=== PATIENT | male | born 1990 | race African-American/Black ===

== ENCOUNTER 2016-08-30 16:53 | Emergency (ER) | payer SELFPAY ==
[~2016-08-30] VITALS: Ht 170.2 cm; Wt 56.8 kg
[~2016-08-30 16:53] MED LIST: DIVALPROEX SOD500 MG PO; KEPPRA500 MG PO; TRAZODONE HCL50 MG PO; ZOFRAN4 MG PO
[2016-08-30 17:37] VITALS: BP 105/75
[2016-08-30] MEDS ORDERED: ZOFRAN4 MG PO (21:44)
== END 2016-08-30 17:39 | disposition left against medical advice (07) ==
LOC: EME 16:53
DX: S01.01XA Laceration without foreign body of scalp, initial encounter (principal); S80.211A Abrasion, right knee, initial encounter; S80.212A Abrasion, left knee, initial encounter; W19.XXXA Unspecified fall, initial encounter; Z59.0 Homelessness; J45.909 Unspecified asthma, uncomplicated; Z91.018 Allergy to other foods; F17.200 Nicotine dependence, unspecified, uncomplicated
CPT/HCPCS: 99281; 99284

== ENCOUNTER 2016-08-30 19:43 | Emergency (ER) | payer SELFPAY ==
[~2016-08-30] VITALS: Ht 170.2 cm; Wt 56.8 kg
[2016-08-30 20:33] LABS: HEMATOCRIT 39.9 % (38.0-50.0); MCH 28.2 PG (29.0-34.0); MCHC 32.8 G/DL (30.0-36.0); MCV 85.8 FL (86-99); MEAN PLAT.VOLUME 9.4 uM^3 (9.0-12.4); PLATELET COUNT 251 K/uL (156-360); RBC DIS.WIDTH-CV 14.1 % (11.8-14.6); RBC DIS.WIDTH-SD 43.5 % (39-53); RED BLOOD COUNT 4.65 M/uL (4.00-5.50); WHITE BLOOD COUNT 14.5 K/uL (4.1-10.2)
[2016-08-30 20:43] LABS: CHLORIDE 111 mEq/L (99-109); POTASSIUM 4.7 mEq/L (3.7-5.4); SODIUM 146 mEq/L (136-147)
[2016-08-30 20:44] LABS: GLUCOSE 75 mg/dL (70-99)
[2016-08-30 20:46] LABS: ANION GAP 9 MEQ/L (2-14)
[2016-08-30 20:47] LABS: SERUM ETHYL ALCOHOL 53 mg/dL
[2016-08-30 20:48] LABS: GFR ESTIMATE (CALCULATED) > 59 mL/min/
[2016-08-30 20:49] LABS: UREA NITROGEN (BUN) 8 mg/dL (9-23)
[2016-08-30 21:35] VITALS: BP 94/51
[2016-08-30] MEDS ORDERED: ZOFRAN4 MG PO (21:44)
[2016-08-30 22:01] LABS: BILIRUBIN NEGATIVE; BLOOD NEGATIVE; COLOR YELLOW ((YELLOW)); GLUCOSE (STRIP) NEGATIVE; KETONES 5; LEUKOCYTES NEGATIVE; NITRITE NEGATIVE; PROTEIN (STRIP) NEGATIVE; SPECIFIC GRAVITY 1.017 (1.000-1.030); UROBILINOGEN 0.2 MG/DL (0.2-1.0)
[2016-08-30 22:02] LABS: ADD MIUA? NO; UCUL ADDED? NO
[2016-08-30 22:12] LABS: AMPHETAMINE NEGATIVE (500 ng/mL); BARBITURATES NEGATIVE (200 ng/mL); BENZODIAZEPINES NEGATIVE (150 ng/mL); COCAINE NEGATIVE (150 ng/mL); INTERNAL CONTROLS VALID? YES; METHADONE NEGATIVE (200 ng/mL); METHAMPHETAMINE NEGATIVE (500 ng/mL); OPIATES (MORPHINE) NEGATIVE (100 ng/mL); OXYCODONE NEGATIVE (100 ng/mL); PHENCYCLIDINE NEGATIVE (25 ng/mL); PROPOXYPHENE NEGATIVE (300 ng/mL); THC CANNABINOIDS NEGATIVE (50 ng/mL); TRICYCLIC ANTIDEPRESSANTS NEGATIVE (300 ng/mL)
== END 2016-08-30 22:00 ==
LOC: EME 19:43
PROVIDERS: Emergency Medicine
PROC: 0HQ0XZZ Repair Scalp Skin, External Approach (ICD-10-PCS; principal; 2016-08-30)
DX: S02.82XA Fracture of other specified skull and facial bones, left side, initial encounter for closed fracture (principal); H11.32 Conjunctival hemorrhage, left eye; S01.01XA Laceration without foreign body of scalp, initial encounter; S60.221A Contusion of right hand, initial encounter; F10.10 Alcohol abuse, uncomplicated; Y09 Assault by unspecified means; R56.9 Unspecified convulsions; Y90.2 Blood alcohol level of 40-59 mg/100 ml; F17.200 Nicotine dependence, unspecified, uncomplicated
CPT/HCPCS: 70450; 70486; 73080; 73130; 80048; 81003; 85027; 99281; 99284; G0480; J2250; J2405; J7030